=== PATIENT | female | born 1990 | race American Indian/Alaskan Native ===

== ENCOUNTER 2019-01-03 10:13 | Emergency (ER) | payer OTHER ==
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
[2019-01-03 14:05] VITALS: BP 132/72
== END 2019-01-03 14:04 | disposition home or self-care (01) ==
LOC: ED 10:13
DX: S40.022A Contusion of left upper arm, initial encounter (principal); V49.9XXA Car occupant (driver) (passenger) injured in unspecified traffic accident, initial encounter; Y93.89 Activity, other specified; Y92.488 Other paved roadways as the place of occurrence of the external cause; Y99.8 Other external cause status
CPT/HCPCS: 72072; 72100; 99283